=== PATIENT | female | born 1995 | race Two or more races ===

== ENCOUNTER 2017-05-15 11:28 | Emergency (ER) | payer OTHER ==
[2017-05-15] MEDS: CYCLOBENZAPRINE 10 MG TAB PO (12:03)
[2017-05-15] MEDS: NORCO, ANEXSIA 5/325MG TABLET (HYDROcodone/ACETAMINOPHEN) PO (12:03)
== END 2017-05-15 12:48 | disposition home or self-care (01) ==
LOC: M ED 11:28
DX: Z04.1 Encounter for examination and observation following transport accident (principal); S13.4XXA Sprain of ligaments of cervical spine, initial encounter; V43.52XA Car driver injured in collision with other type car in traffic accident, initial encounter; Y92.410 Unspecified street and highway as the place of occurrence of the external cause; Z88.0 Allergy status to penicillin
CPT/HCPCS: 72125